=== PATIENT | female | born 1935 | race Native Hawaiian/Other Pacific Islander ===

== ENCOUNTER 2017-06-04 12:31 | Emergency (ER) | payer OTHER, MEDICAID ==
[~2017-06-04] VITALS: Ht 157.5 cm; Wt 63.5 kg
[2017-06-04] MEDS ORDERED: CALCIUM CHLOR(10%) 100MG/ML 10ML SYRINGE IV ONE (12:32)
[2017-06-04] MEDS ORDERED: SODIUM BICARBONATE 8.4% INJ 50ML SYRINGE IV ONE (12:32)
[2017-06-04] MEDS ORDERED: EPINEPHrine HCL 1 MG/10 ML SYRG IV ONE (12:32)
[2017-06-04] MEDS ORDERED: SODIUM CHLORIDE 0.9% 1,000 ML IV ONE (12:46)
[2017-06-04] MEDS ORDERED: NOREPINEPHRINE 8 MG/250ML KIT 250 ML IV ONE (12:49)
[2017-06-04] MEDS ORDERED: NOREPINEPHRINE 8 MG/250ML KIT 250 ML IV SCH (13:15)
[2017-06-04 13:57] LABS: Eosinophils # (auto) 0.5 uL; Hemoglobin 7.6 g/dL (12.2-16.2); Lymphocytes # (auto) 2.3 uL; Mean Corpuscular Volume 109.7 fL (80.0-100.0); Monocytes # (auto) 0.3 uL; Nucleated Red Blood Cells % 0.6 %; White Blood Cell 5.5 10^3/uL (4.4-10.8)
[2017-06-04 13:58] LABS: Basophils # (auto) 0 uL; Basophils % (auto) 0.7 % (0.0-2.0); Eosinophils % (auto) 9.5 % (0.0-7.0); Hematocrit 24.4 % (36.0-46.0); Lymphocytes % (auto) 41.3 % (10.0-50.0); Mean Corpuscular Hemoglobin 34.3 pg (28.0-32.0); Mean Corpuscular Hgb Conc. 31.3 g/dL (32.0-36.0); Monocytes % (auto) 5.2 % (0.0-12.0); Neutrophils # (auto) 2.4 uL; Neutrophils % (auto) 43.3 % (37.0-80.0); Platelet Count (auto) 136 10^3/uL (140-450); Red Blood Cells 2.22 10^6/uL (4.0-5.20)
[2017-06-04 14:06] LABS: Red Cell Distribution Width 21.2 % (11.8-14.3)
[2017-06-04 14:33] LABS: Alanine Aminotransferase 12 U/L (13-56); Albumin 2.2 g/dL (3.4-5.0); Alkaline Phosphatase 102 U/L (45-117); Anion Gap 10 (5-15); Aspartate Aminotransferase 19 U/L (15-37); BUN/Creatinine Ratio 1.3; Bilirubin, Total 0.9 mg/dL (0.2-1.0); Blood Urea Nitrogen 3 mg/dL (7-18); Carbon Dioxide 28 mmol/L (21-32); Chloride 110 mmol/L (98-107); GFR African American 27 mL/min; GFR Non-African American 22 mL/min; Glucose 147 mg/dL (74-106); Magnesium 1.9 mg/dL (1.6-2.6); Potassium 3.6 mmol/L (3.5-5.1); Sodium 148 mmol/L (136-145); Total Protein 5.1 g/dL (6.4-8.2)
[2017-06-04] MEDS ORDERED: PHENYLEPHRINE INJ 20 MG in D5W 5% 248 ML IV ONE (14:45)
[2017-06-04 14:54] LABS: Lactic Acid w/Reflex 5.4 mmol/L (0.4-2.0)
[2017-06-04] MEDS ORDERED: LORazepam 2MG/ML-1ML VIAL ONE (16:44)
[2017-06-04] MEDS ORDERED: LORazepam 2MG/ML-1ML VIAL IV ONE (17:15)
[2017-06-04 17:44] VITALS: BP 48/21
[2017-06-04] MEDS ORDERED: VANCOMYCIN 1GM/250ML 250 ML IV ONE (18:00)
== END 2017-06-04 23:40 | disposition expired ==
LOC: ER 12:31
DX: A41.9 Sepsis, unspecified organism (principal); R65.21 Severe sepsis with septic shock; I46.9 Cardiac arrest, cause unspecified; I50.9 Heart failure, unspecified; R41.82 Altered mental status, unspecified; D63.8 Anemia in other chronic diseases classified elsewhere; R74.0 Nonspecific elevation of levels of transaminase and lactic acid dehydrogenase [LDH]; E43 Unspecified severe protein-calorie malnutrition; E03.9 Hypothyroidism, unspecified; N18.6 End stage renal disease; I13.2 Hypertensive heart and chronic kidney disease with heart failure and with stage 5 chronic kidney disease, or end stage renal disease; Z99.2 Dependence on renal dialysis
CPT/HCPCS: 31500; 36415; 36556; 36600; 76700; 80053; 82805; 82962; 83605; 83735; 84443; 84484; 85025; 85379; 87040; 92950; 93005; 93306; 96374; 99291; J0171; J2060; J2370; J7060